=== PATIENT | male | born 2000 | race Caucasian/White ===

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

== ENCOUNTER 2022-03-29 00:58 | Emergency (ER) | payer MEDICAID ==
[2022-03-29] MEDS ORDERED: SODIUM CHLORIDE 0.9% 1000 ML 1,000 ML IV ONE ×2 (01:19)
[2022-03-29] MEDS ORDERED: LORazepam 2 MG/ML VIAL IV ONE (01:19)
--- NOTE | 2022-03-29 01:24 | Emergency Department Report ---
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 Patient states he just felt very tired after getting off this afternoon. Patient eventually went to bed this evening when he woke up he says he felt short of breath and had bilateral lower extremity cramping. Patient states she got up to splash water on his face to see if it helped but then his entire body began to cramp and shortness of breath worsened. Patient's parents called EMS for panic attacks and EMS arrived to find the patient "spazing out." Vital signs were stable and they were able to calm the patient by placing O2 via nasal cannula. The patient states he had has had an episode of the same in the past but was never given a formal diagnosis ED Past Medical Hx - Past Medical History Previous Medical History?: No - Surgical History Past Surgical History?: No - Family History Family history: no significant - Social History Smoking Status: Never Smoker Substance Use Type: None - Medications Home Medications: Home Medications Medication Instructions Recorded Confirmed Last Taken Type hydrOXYzine PAMOATE [Vistaril] 50 mg PO Q6HR PRN #10 capsule 03/29/22 Unknown Rx ED Review of Systems ROS: Stated complaint: PANIC ATTACK Other details as noted in HPI Constitutional: no symptoms reported Eyes: denies: eye pain ENT: denies: throat pain Respiratory: shortness of breath Cardiovascular: denies: chest pain Endocrine: no symptoms reported Gastrointestinal: denies: abdominal pain Genitourinary: denies: dysuria Musculoskeletal: myalgia Neurological: denies: headache Physical Exam - Physical Exam Vital Signs: Vital Signs 03/29/22 01:09 Temperature 98 F Pulse Rate 105 H Respiratory 16 Rate Blood Pressure 160/100 [Right] O2 Sat by Pulse 97 Oximetry Physical Exam: GENERAL: The patient is well-developed well-nourished male lying on stretcher appearing slightly anxious but attempting to calm himself. [] HEENT: Normocephalic. Atraumatic. Extraocular motions are intact. Patient has moist mucous membranes. NECK: Supple. Trachea midline CHEST/LUNGS: Clear to auscultation. There is no respiratory distress noted. HEART/CARDIOVASCULAR: Regular. There is no tachycardia. There is no gallop rub or murmur. ABDOMEN: Abdomen is soft, nontender. Patient has normal bowel sounds. There is no abdominal distention. SKIN: There is no rash. There is no edema. There is no diaphoresis. NEURO: The patient is awake, alert, and oriented. The patient is cooperative. The patient has no focal neurologic deficits. The patient has normal speech. GCS 15 MUSCULOSKELETAL: There is no evidence of acute injury. ED Course Vital Signs 03/29/22 01:09 Temperature 98 F Pulse Rate 105 H Respiratory 16 Rate Blood Pressure 160/100 [Right] O2 Sat by Pulse 97 Oximetry - Reevaluation(s) Reevaluation #1: 03/29/22 04:41 Patient states he feels improved just tired ED Medical Decision Making - Lab Data Result diagrams: 03/29/22 01:28 03/29/22 01:28 Laboratory Tests 03/29/22 03/29/22 03/29/22 01:28 01:28 01:28 WBC 6.3 RBC 4.49 Hgb 14.4 Hct 42.2 MCV 94 MCH 32 MCHC 34 RDW 12.1 L Plt Count 192 Lymph % (Auto) 39.0 H [place] % (Auto) 9.3 H Eos % (Auto) 0.8 Baso % (Auto) 0.8 Lymph # (Auto) 2.4 [place] # (Auto) 0.6 Eos # (Auto) 0.0 Baso # (Auto) 0.0 Seg Neutrophils % 50.1 Seg Neutrophils # 3.1 D-Dimer 59.46 Sodium 141 Potassium 3.5 L Chloride 106.2 Carbon Dioxide 21 L Anion Gap 17 BUN 19 Creatinine 0.8 Estimated GFR > 60 BUN/Creatinine Ratio 24 Glucose 98 Calcium 9.2 Magnesium 1.70 Total Creatine Kinase 144 Troponin T TSH Free T4 Urine Opiates Screen Urine Methadone Screen Ur Barbiturates Screen Ur Phencyclidine Scrn Ur Amphetamines Screen U Benzodiazepines Scrn Urine Cocaine Screen U Marijuana (THC) Screen Drugs of Abuse Note Plasma/Serum Alcohol 03/29/22 03/29/22 03/29/22 01:28 01:28 01:33 WBC RBC Hgb Hct MCV MCH MCHC RDW Plt Count Lymph % (Auto) [place] % (Auto) Eos % (Auto) Baso % (Auto) Lymph # (Auto) [place] # (Auto) Eos # (Auto) Baso # (Auto) Seg Neutrophils % Seg Neutrophils # D-Dimer Sodium Potassium Chloride Carbon Dioxide Anion Gap BUN Creatinine Estimated GFR BUN/Creatinine Ratio Glucose Calcium Magnesium Total Creatine Kinase Troponin T < 0.010 TSH 3.000 Free T4 1.27 Urine Opiates Screen Urine Methadone Screen Ur Barbiturates Screen Ur Phencyclidine Scrn Ur Amphetamines Screen U Benzodiazepines Scrn Urine Cocaine Screen U Marijuana (THC) Screen Drugs of Abuse Note Plasma/Serum Alcohol < 0.01 03/29/22 Unknown WBC RBC Hgb Hct MCV MCH MCHC RDW Plt Count Lymph % (Auto) [place] % (Auto) Eos % (Auto) Baso % (Auto) Lymph # (Auto) [place] # (Auto) Eos # (Auto) Baso # (Auto) Seg Neutrophils % Seg Neutrophils # D-Dimer Sodium Potassium Chloride Carbon Dioxide Anion Gap BUN Creatinine Estimated GFR BUN/Creatinine Ratio Glucose Calcium Magnesium Total Creatine Kinase Troponin T TSH Free T4 Urine Opiates Screen Presumptive negative Urine Methadone Screen Presumptive negative Ur Barbiturates Screen Presumptive negative Ur Phencyclidine Scrn Presumptive negative Ur Amphetamines Screen Presumptive negative U Benzodiazepines Scrn Presumptive negative Urine Cocaine Screen Presumptive negative U Marijuana (THC) Screen Presumptive negative Drugs of Abuse Note Disclamer Plasma/Serum Alcohol - EKG Data -: EKG Interpreted by Me EKG shows normal: sinus rhythm Rate: bradycardia (54 bpm) - EKG Data When compared to previous EKG there are: previous EKG unavailable Interpretation: other (No ischemic changes seen) - Radiology Data Radiology results: report reviewed (Chest x-ray), image reviewed (Chest x-ray) interpreted by me: Chest x-ray-no definite focal infiltrates, no pneumothorax [facility] [address] [place] [address] XRay Report Signed Patient: RUI FRAUSTO MR#: [id number] 3 : 2000 Acct:[id number] Age/Sex: 21 / M ADM Date: 03/29/22 Loc: ED Attending Dr: Ordering Physician: BERNADINE CAMPBELL MD Date of Service: 03/29/22 Procedure(s): XR chest 1V ap Accession Number(s): [id number] cc: BERNADINE CAMPBELL MD Fluoro Time In Minutes: XR chest 1V ap INDICATION / CLINICAL INFORMATION: Shortness of breath. COMPARISON: None available. FINDINGS: SUPPORT DEVICES: None. HEART /PULMONARY VASCULATURE: No significant abnormality. LUNGS / PLEURA: No significant pulmonary or pleural abnormality. No pneumothorax. ADDITIONAL FINDINGS: No significant additional findings. IMPRESSION: 1. No acute findings. Signer Name: Amna Moreno MD Signed: 03/29/2022 5:21 AM Workstation Name: [id number] Transcribed By: JS Dictated By: AMNA MORENO MD Electronically Authenticated By: AMNA MORENO MD Signed Date/Time: 03/29/22520 DD/ 9 TD/TT: - Differential Diagnosis Anxiety, PE, electrolyte abnormality, intoxication, rhabdomyolysis, dehydra Critical care attestation.: If time is entered above; I have spent that time in minutes in the direct care of this critically ill patient, excluding procedure time. ED Disposition Clinical Impression: Anxiety Disposition: 01 HOME / SELF CARE / HOMELESS Is pt being admited?: No Does the pt Need Aspirin: No Condition: Stable Instructions: Managing Anxiety, Adult Additional Instructions: Return to the emergency department should you develop worsening symptoms, inability to tolerate food or liquids, high fever or any other concerns Prescriptions: hydrOXYzine PAMOATE [Vistaril] 50 mg PO Q6HR PRN #10 capsule PRN Reason: Anxiety Referrals: [facility] [Provider Group] - 3-5 Days Time of Disposition: 05:01
[2022-03-29 01:49] LABS: Basophils % (Auto) 0.8 % (0.0-1.8); Eosinophils % (Auto) 0.8 % (0.0-4.3); Hematocrit 42.2 % (35.5-45.6); Hemoglobin 14.4 gm/dl (11.8-15.2); Lymphocytes # (Auto) 2.4 K/mm3 (1.2-5.4); Mean Corpuscular HGB Conc 34 % (32-34); Mean Corpuscular Volume 94 fl (84-94); Monocytes # (Auto) 0.6 K/mm3 (0.0-0.8); Monocytes % (Auto) 9.3 % (0.0-7.3); Platelet Count 192 K/mm3 (140-440); Red Blood Count 4.49 M/mm3 (3.65-5.03); Red Cell Distribution Width 12.1 % (13.2-15.2)
[2022-03-29 02:05] LABS: BUN/Creatinine Ratio 24; Blood Urea Nitrogen 19 mg/dL (9-20); Calcium 9.2 mg/dL (8.4-10.2); Hemolysis Index 13
[2022-03-29 02:16] LABS: Free T4 (Free Thyroxine) 1.27 ng/dL (0.76-1.46)
[2022-03-29 02:29] LABS: Amphetamine Screen,Urine PRESUMPTIVE NEGATIVE; Benzodiazepines Screen,Urine PRESUMPTIVE NEGATIVE; Cannabinoid Screen,Urine PRESUMPTIVE NEGATIVE; Cocaine Screen,Urine PRESUMPTIVE NEGATIVE; Methadone Screen,Urine PRESUMPTIVE NEGATIVE; Opiate Screen,Urine PRESUMPTIVE NEGATIVE
[2022-03-29] MEDS ORDERED: POTASSIUM CHLORIDE ER 20 MEQ TAB PO ONE (02:39)
[2022-03-29] MEDS ORDERED: LORazepam 1 MG TAB PO ONE (03:07)
[2022-03-29 05:24] VITALS: BP 112/72
--- NOTE | 2022-03-29 05:25 | XRay Report ---
XR chest 1V ap INDICATION / CLINICAL INFORMATION: Shortness of breath. COMPARISON: None available. FINDINGS: SUPPORT DEVICES: None. HEART /PULMONARY VASCULATURE: No significant abnormality. LUNGS / PLEURA: No significant pulmonary or pleural abnormality. No pneumothorax. ADDITIONAL FINDINGS: No significant additional findings. IMPRESSION: 1. No acute findings. Signer Name: Harjit Albarran MD Signed: 03/29/2022 5:21 AM Workstation Name: [id number]
--- NOTE | 2022-03-29 11:19 | Electrocardiograph Report ---
[facility] Test Date: 2022-03-29 Test Time: 04:24:30 Pat Name: RUI FRAUSTO Department: Room: Gender: M Pain Medicine Physician: BILLY : 2000 Requested By: BERNADINE CAMPBELL Order Number: [id number] Reading MD: Jacob Driver Measurements Intervals [place] Rate: 54 P: 43 TN: 174 QRS: -12 QRSD: 92 T: 31 QT: 427 QTc: 404 Interpretive Statements Sinus bradycardia No previous ECG available for comparison Electronically Signed On 03-29-2022 11:19:06 EDT by Jacob Driver
== END 2022-03-29 05:20 | disposition home or self-care (01) ==
LOC: ED 00:58
DX: F41.9 Anxiety disorder, unspecified (principal); Z79.899 Other long term (current) drug therapy
CPT/HCPCS: 36415; 71045; 80048; 80307; 82550; 83735; 84439; 84443; 84484; 85025; 85379; 93005; 96360; 99285; J7030; 80320; G0480